=== PATIENT | female | born 1980 | race Caucasian/White ===

== ENCOUNTER 2017-02-15 09:49 | Outpatient (CLI) | payer BC ==
[~2017-02-15] VITALS: Ht 152.4 cm; Wt 77.3 kg
[2017-02-15 10:36] LABS: BASOPHILS 0.3 % (0-2); EOSINOPHILS 5.4 % (0-7); HEMATOCRIT 43.8 % (36.0-48.0); HEMOGLOBIN 14.9 g/dL (12-16); IMMATURE GRANULOCYTES 0.2 % (0-5); LYMPHOCYTES 34.3 % (15-50); MCH 32.6 pg (26.0-34.0); MCV 95.8 fL (80.0-100.0); MEAN PLATELET VOLUME 10.9 fL (7.4-10.4); MONOCYTES 7.2 % (2-11); NEUTROPHILS 52.6 % (40-80); PLATELET COUNT 341 10x3/uL (130-400); RBC 4.57 10x6/uL (4.00-5.40); RDW 12.8 % (11.5-14.5); WBC 12.6 10x3/uL (4.8-10.8)
[2017-02-15] MEDS ORDERED: LEXAPRO10 MG PO (10:38)
[2017-02-15 10:42] LABS: INR 0.93 (0.85-1.17); PROTIME 12.3 SECONDS (11.6-15.0)
[2017-02-15 10:43] LABS: APTT 27.2 SECONDS (22.8-39.4)
[2017-02-15 10:47] VITALS: BP 106/63; Ht 152.4 cm; Wt 77.3 kg
[2017-02-15 10:48] LABS: CALC OSMOLALITY 276 mosm/kg (275-300); CALCIUM 9.3 mg/dL (8.5-10.1); CARBON DIOXIDE 28.9 mmol/L (21.0-32.0); CHLORIDE - SERUM 104 mmol/L (98-107); CREATININE - SERUM 0.9 mg/dL (0.6-1.3); GLUCOSE 102 mg/dL (74-106); POTASSIUM - SERUM 4.1 mmol/L (3.5-5.1); SODIUM 139 mmol/L (136-145); UREA NITROGEN 10 mg/dL (7-18); eGFR NON AFRICAN AMERICAN 75 mL/min (90-120)
[2017-02-15 11:49] LABS: HCG SERUM NEGATIVE (NEGATIVE)
--- NOTE | 2017-02-15 15:51 | NUR ---
[address] OF LIVER CYST RT SIDE DRESSING C/D/I NO BLEEDING OR HEMATOMA. ON MONOTOR RESP EVEN AND NONLABORED. TRAY ORDERED
--- NOTE | 2017-02-15 16:02 | NUR ---
MEDICATED FOR PAIN RT ABDOMEN SIDE SITE.
[2017-02-15 17:08] LABS: PROTEIN - BODY FLUID 1.8 G/DL
--- NOTE | 2017-02-15 17:16 | NUR ---
5150 PAIN BETTER A 3. RT ABDOMEN NO BLEEDING DRESSING C/D/I.
[2017-02-15 17:28] LABS: EOS BF 1 %; LYMPH - BF 54 %; MACROPHAGES BF 16 %; MESOTHELIALS BF 9 %; NEUT - BF 20 %
--- NOTE | 2017-02-15 18:14 | NUR ---
5238 SLIGHT DISCOMFORT 2 TOLD TO TAKE TYLENOL AT HOME. NO BLEEDING TO RT ABDOMEN SITE C/D/I.
--- NOTE | 2017-02-15 18:18 | NUR ---
1814 IV DCD CATHETER INTACT. WENT OVER DISCHARGE INSTRUCTIONS AND VERBALLY UNDERSTANDS. TO HOME WITH FAMILY.
== END 2017-02-15 18:15 | disposition home or self-care (01) ==
LOC: D.OPS 09:49 → D.SP 14:00 → D.OPS 14:00
PROVIDERS: General Practice; Radiology Diagnostic Radiology
DX: K76.89 Other specified diseases of liver (principal); D13.4 Benign neoplasm of liver; Z01.812 Encounter for preprocedural laboratory examination

== ENCOUNTER → 2017-05-10 05:26 | Outpatient (CLI) | payer BC ==
[~2017-05-10] VITALS: Ht 152.4 cm; Wt 77.3 kg
[~2017-05-10 05:26] MED LIST: LEXAPRO10 MG PO
[2017-05-10 06:37] LABS: HCG URINE NEGATIVE (NEGATIVE)
[2017-05-10 06:38] VITALS: Ht 152.4 cm; Wt 77.3 kg
[2017-05-10 06:52] LABS: APTT 30.9 SECONDS (22.8-39.4); INR 0.88 (0.85-1.17); PROTIME 11.8 SECONDS (11.6-15.0)
[2017-05-10 06:59] LABS: CALC OSMOLALITY 279 mosm/kg (275-300); CALCIUM 8.8 mg/dL (8.5-10.1); CARBON DIOXIDE 28.6 mmol/L (21.0-32.0); CHLORIDE - SERUM 104 mmol/L (98-107); CREATININE - SERUM 0.8 mg/dL (0.6-1.3); GLUCOSE 99 mg/dL (74-106); SODIUM 141 mmol/L (136-145); UREA NITROGEN 9 mg/dL (7-18); eGFR NON AFRICAN AMERICAN 86 mL/min (90-120)
[2017-05-10 07:13] LABS: BASOPHILS 0.4 % (0-2); EOSINOPHILS 6.7 % (0-7); HEMATOCRIT 42.1 % (36.0-48.0); HEMOGLOBIN 14.3 g/dL (12-16); IMMATURE GRANULOCYTES 0.4 % (0-5); MCH 32.7 pg (26.0-34.0); MCV 96.3 fL (80.0-100.0); MEAN PLATELET VOLUME 10.8 fL (7.4-10.4); NEUTROPHILS 49.5 % (40-80); PLATELET COUNT 348 10x3/uL (130-400); RBC 4.37 10x6/uL (4.00-5.40); RDW 12.8 % (11.5-14.5); WBC 12.4 10x3/uL (4.8-10.8)
--- NOTE | 2017-05-10 10:01 | NUR ---
0905 RECEIVED PT FROM RADIOLOGY NURSE FERNANDA. SEE PROCEDURE CHECKLIST IN CHART FOR FREQUENT VITALS.
--- NOTE | 2017-05-10 10:55 | NUR ---
1055 DISCHARGE INSTRUCTIONS COMPLETE. NO PRESCRIPTIONS GIVEN. ESCORTED OUT BY VOLUNTEER.
== END | disposition home or self-care (01) ==
LOC: D.OPS 05:26 → D.US 08:00
PROVIDERS: Family Medicine; Specialist
DX: D13.4 Benign neoplasm of liver (principal); R94.5 Abnormal results of liver function studies; Z01.812 Encounter for preprocedural laboratory examination

== ENCOUNTER → 2019-01-23 23:09 | Outpatient (CLI) | payer BC ==
[2017-05-10 06:38] VITALS: BMI 33.2
== END | disposition home or self-care (01) ==
LOC: D.MAMMO 11:30
PROVIDERS: ATTEND Family Medicine
DX: Z12.31 Encounter for screening mammogram for malignant neoplasm of breast (principal)

== ENCOUNTER 2019-07-28 08:00 | Outpatient (CLI) | payer BC ==
[2017-05-10 06:38] VITALS: BMI 33.2
== END 2019-07-28 23:59 | disposition home or self-care (01) ==
LOC: D.MAMMO 08:00
PROVIDERS: ATTEND Family Medicine
DX: R92.8 Other abnormal and inconclusive findings on diagnostic imaging of breast (principal)

== ENCOUNTER 2021-02-13 10:00 | Outpatient (CLI) | payer BC ==
[2017-05-10 06:38] VITALS: BMI 33.2
== END 2021-02-13 23:59 | disposition home or self-care (01) ==
LOC: D.MAMMO 10:00
PROVIDERS: ATTEND Nurse Practitioner
DX: Z12.31 Encounter for screening mammogram for malignant neoplasm of breast (principal)